=== PATIENT | female | born 1990 | race Caucasian/White ===

== ENCOUNTER 2018-08-14 21:48 | Emergency (ER) | payer MEDICAID ==
[~2018-08-14] VITALS: Ht 167.6 cm; Wt 72.6 kg
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
[2018-08-14] MEDS ORDERED: IBUPROFEN600 MG ORAL (22:46)
[2018-08-14 23:00] VITALS: BP 127/70
--- NOTE | 2018-08-14 23:00 | NUR ---
ER Nurse Note: Pt seen, treated, medically cleared for discharge by ERMD. Discharge instructions and prescriptions given with repeat verbalization by pt. Instructed pt to follow up with primary care physican within one week. Pt a&ox4, VSS, no signs of acute distress. Splint applied by hazardous waste technician. Crutch teaching provided with repeat demonstration by pt. ID band removed. Pt left with all belongings.
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
--- NOTE | 2018-08-15 19:15 | Diagnostic Imaging Report ---
Indication: Foot pain Comparison: None Findings: 3 views of the left foot were obtained. There is acute fracture at the base of the fifth metatarsal. Soft tissue swelling noted. Negative exam otherwise. IMPRESSION: Acute fracture fifth metatarsal base
--- NOTE | 2018-08-15 19:15 | Diagnostic Imaging Report ---
Indication: left ankle pain Comparison: None Findings: 3 views of the left ankle obtained. There is acute fracture at the base of the fifth metatarsal. Some distraction of the fracture noted. The ankle is normal in appearance. IMPRESSION: Acute fracture base of the fifth metatarsal
== END 2018-08-14 23:00 | disposition home or self-care (01) ==
LOC: EMR 22:30
DX: S92.352A Displaced fracture of fifth metatarsal bone, left foot, initial encounter for closed fracture (principal); W05.2XXA Fall from non-moving motorized mobility scooter, initial encounter; Y92.9 Unspecified place or not applicable; Z88.8 Allergy status to other drugs, medicaments and biological substances
CPT/HCPCS: 29515; 99283